=== PATIENT | female | born 1940 | race Caucasian/White ===

== ENCOUNTER → 2016-07-30 | Outpatient (CLI) | payer MEDICARE, BC ==
--- NOTE | 2016-07-30 12:33 | FL ---
EXAMINATION TYPE: FL barium swallow w video DATE OF EXAM ORDERED: 07/30/2016 11:38 AM HISTORY: DYSPHAGIA R13.10. COMPARISON: None. TECHNIQUE: The patient was challenged with varying food substances ranging from thin liquids through solids. FINDINGS: The examination was terminated as the patient refused to swallow. IMPRESSION: DISCONTINUED EXAMINATION.
== END | disposition home or self-care (01) ==
LOC: RADFLWHC 09:54
PROVIDERS: ATTEND Internal Medicine
DX: R13.10 Dysphagia, unspecified (principal); Z79.899 Other long term (current) drug therapy
CPT/HCPCS: 74230